=== PATIENT | male | born 1985 | race Caucasian/White ===

== ENCOUNTER 2017-06-05 12:49 | Emergency (ER) | payer OTHER ==
[2017-06-05 12:53] VITALS: BP 156/91; PULSE 86; TEMP 99.6; BMI 37.6
[2017-06-05] MEDS ORDERED: DIPHTH,PERTUSS(ACELL),TET 0.5 ML DISP.SYRIN IM ONE (14:10)
[2017-06-05] MEDS ORDERED: IBUPROFEN 600 MG TABLET (FP) PO ONE ×2 (14:10→14:13)
--- NOTE | 2017-06-05 14:10 | PDOC ---
History of Present Illness - General Chief Complaint: Injury Stated Complaint: INJURY Time Seen by Provider: 06/05/17 13:52 History Source: Patient Exam Limitations: No Limitations - History of Present Illness Initial Comments: 06/05/17 14:05 Patient is here status post slip and fall extending arm up volar aspect from wrist through elbow and up to right axilla. Patient works on [employer] and scraped elbow on some rocks and wall. Denies any joint pain, numbness or tingling to hands, range of motion is intact to his shoulder and elbow and wrist. States has some mild back tenderness. No head or other injury. Occurred: reports: just prior to arrival, this afternoon Severity: reports: mild, moderate Pain Location: reports: upper extremity (right arm and upper arm) Method of Injury: Yes: fall Associated Symptoms (Fall): denies symptoms Past History - Travel Traveled outside of the country in the last 30 days: No Close contact w/someone who was outside of country & ill: No - Past Medical History Allergies/Adverse Reactions: Allergies Allergy/AdvReac Type Severity Reaction Status Date / Time No Known Allergies Allergy Verified 06/05/17 12:53 Home Medications: Ambulatory Orders NK [No Known Home Medication] 06/05/17 COPD: No - Suicide/Smoking/Psychosocial Hx Smoking History: Never smoked Trauma Specific PMHX - Complaint Specific PMHX Back Injury: No Neck Injury: No Review of Systems - Review of Systems Able to Perform ROS?: Yes Is the patient limited Iranian proficient: Yes Constitutional: Yes: See HPI. No: Symptoms Reported HEENTM: No: Symptoms Reported Respiratory: No: Symptoms reported Musculoskeletal: Yes: Symptoms Reported, See HPI, Muscle Pain. No: Neck Pain Integumentary: Yes: Symptoms Reported, See HPI, Bruising, Rash (abrasion ) All Other Systems: Reviewed and Negative *Physical Exam - Vital Signs Last Vital Signs Temp Pulse Resp BP Pulse Ox 99.6 F 86 18 156/91 97 06/05/17 12:49 06/05/17 12:49 06/05/17 12:49 06/05/17 12:49 06/05/17 12:49 - Physical Exam General Appearance: Yes: Nourished, Appropriately Dressed, Apparent Distress, Mild Distress HEENT: positive: JANETTE, Normal ENT Inspection, TMs Normal, Pharynx Normal Neck: positive: Supple. negative: Tender Musculoskeletal: positive: Normal Inspection, CVA Tenderness. negative: Decreased Range of Motion, Vertebral Tenderness Extremity: positive: Normal Capillary Refill, Normal Inspection, Normal Range of Motion Integumentary: positive: Dry, Warm, Ecchymosis, Bruising (official abrasions extending from left volar wrist up through forearm past elbow and extending up upper arm to axilla with some scattered superficial abrasions. No true lacerations and no active bleeding. Patient has full range of motion to all fingers, wrist, elbow and shoulder. 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 Tetanus/diphtheria test pertussis booster updated today *DC/Admit/Observation/Transfer Diagnosis at time of Disposition: Contusion of multiple sites - Discharge Dispostion Disposition: HOME Condition at time of disposition: Stable Admit: No - Patient Instructions Printed Discharge Instructions: Easy Bruising (Alternative Therapy) Additional Instructions: Rest, ice to area on and off for 15 minutes 4-6 times a day Avoid heavy lifting or exercise until pain and swelling is resolved or until further directed Keep area highly elevated to reduce swelling Use splints/Timoteo wrap as directed Apply bacitracin ointment to all abrasions twice a day until healed Followup with orthopedist / PMD in one to 2 days if not improving, if significantly improved may wait one week for followup with orthopedist May use ibuprofen 2-200 mg tablets every 6 hours as needed for pain Your tetanus/diphtheria/pertussis booster was updated today - Post Discharge Activity Forms/Work/School Notes: Back to Work
== END 2017-06-05 14:25 | disposition home or self-care (01) ==
LOC: JERFT 12:49
PROC: 3E0234Z Introduction of Serum, Toxoid and Vaccine into Muscle, Percutaneous Approach (ICD-10-PCS; principal; 2017-06-05)
DX: S50.12XA Contusion of left forearm, initial encounter (principal); S40.022A Contusion of left upper arm, initial encounter; W01.118A Fall on same level from slipping, tripping and stumbling with subsequent striking against other sharp object, initial encounter; Y93.89 Activity, other specified; Y92.85 Railroad track as the place of occurrence of the external cause; Y99.0 Civilian activity done for income or pay
CPT/HCPCS: 90715; 99281-25